=== PATIENT | female | born 1975 | race African-American/Black ===

== ENCOUNTER 2017-05-30 14:29 | Emergency (ER) | payer MEDICAID, OTHER ==
[~2017-05-30] VITALS: Ht 160 cm; Wt 54.0 kg
[2017-05-30] MEDS ORDERED: NO HOME MEDICATIONS (14:42)
[2017-05-30 16:29] VITALS: BP 123/78
[2017-05-30] MEDS ORDERED: KETOROLAC 60MG/2ML VIAL IM ONE (16:30)
== END 2017-05-30 16:36 | disposition home or self-care (01) ==
LOC: ER 15:10
DX: G56.03 Carpal tunnel syndrome, bilateral upper limbs (principal)
CPT/HCPCS: 96372; 99283; J1885

== ENCOUNTER 2019-07-20 04:32 | Emergency (ER) | payer MEDICAID, OTHER ==
[~2019-07-20] VITALS: Ht 160 cm; Wt 59.0 kg
[~2019-07-20 04:32] MED LIST: NO HOME MEDICATIONS
[2019-07-20] MEDS ORDERED: ONDANSETRON HCL 4MG/2ML INJ IV STA (05:34)
[2019-07-20] MEDS ORDERED: SODIUM CHLORIDE 0.9% 1,000 ML IV ONE (05:34)
[2019-07-20] MEDS ORDERED: VISCOUS LIDOCAINE 2% 15 ML UDC PO STA (05:34)
[2019-07-20] MEDS ORDERED: MAGNESIUM/ALUMINUM HYDROXIDE/SIMETHICONE 30ML UDC PO STA (05:34)
[2019-07-20 05:56] LABS: BASOPHILS % 0.4 % (0.0-2.0); HEMATOCRIT. 42.5 % (36.0-48.0); LYMPHOCYTES % 10.2 % (20.0-50.0); MEAN CORPUSCULAR HEMOGLOBIN 25.1 pg (28.0-32.0); MEAN CORPUSCULAR VOLUME 76.3 fL (81.0-99.0); MEAN PLATELET VOLUME 8.3 fl (7.4-10.4); MONOCYTES % 6.3 % (2.0-8.0); NEUTROPHILS % 83.1 % (40.0-76.0); PLATELET 404 x1000/uL (130-400); RED BLOOD CELL COUNT 5.58 mill/uL (4.2-5.4); RED CELL DISTRIBUTION WIDTH 16.5 % (11.6-14.6)
[2019-07-20 06:15] LABS: CHLORIDE 102 mEq/L (98-107)
[2019-07-20 06:23] LABS: CLARITY URINE CLOUDY (CLEAR); COLOR URINE YELLOW (YELLOW); KETONES URINE TRACE (NEGATIVE); LEUKOCYTE ESTERASE URINE NEGATIVE (NEGATIVE); NITRITE URINE NEGATIVE (NEGATIVE); OCCULT BLOOD URINE 3+ (NEGATIVE); PROTEIN URINE 3+ (NEGATIVE); SPECIFIC GRAVITY URINE 1.034 (1.005-1.030); UROBILINOGEN URINE 0.2 E.U./dL (0.2-1.0)
[2019-07-20] MEDS ORDERED: LORAZEPAM 1MG TABLET PO ONE (06:45)
[2019-07-20] MEDS ORDERED: FAMOTIDINE 20MG/2ML VIAL IV ONE (06:45)
[2019-07-20] MEDS ORDERED: SUCRALFATE 1 G/10 ML UDC PO ONE (08:15)
[2019-07-20 09:03] VITALS: BP 144/76
== END 2019-07-20 09:05 | disposition home or self-care (01) ==
LOC: ER 04:32
DX: K27.9 Peptic ulcer, site unspecified, unspecified as acute or chronic, without hemorrhage or perforation (principal); N39.0 Urinary tract infection, site not specified; R03.0 Elevated blood-pressure reading, without diagnosis of hypertension
CPT/HCPCS: 36415; 80053; 81003; 81025; 83690; 84484; 85025; 96361; 96374; 96375; 99284; J2405; J3490; J7030